=== PATIENT | female | born 1940 | race Caucasian/White ===

== ENCOUNTER 2021-10-01 17:31 | Emergency (ER) | payer OTHER ==
[~2021-10-01] VITALS: Ht 180.3 cm; Wt 81.7 kg
[2021-10-01] MEDS ORDERED: WARF1 (19:59)
[2021-10-01 20:00] LABS: BASOPHILS ABSOLUTE AUTO 0.04 K/mm3 (0.00-0.23); BASOPHILS PERCENT AUTO 0 % (0-2); EOSINOPHILS ABSOLUTE AUTO 0.06 K/mm3 (0.00-0.68); EOSINOPHILS PERCENT AUTO 1 % (0-6); Hematocrit 22.8 % (33.0-51.0); Hemoglobin 6.1 g/dL (11.5-16.0); IMMATURE GRAN ABSOLUTE AUTO 0.05 K/mm3 (0.00-0.10); IMMATURE GRAN PERCENT AUTO 0 % (0-1); LYMPHOCYTES ABSOLUTE AUTO 2.22 K/mm3 (0.84-5.20); LYMPHOCYTES PERCENT AUTO 20 % (21-46); MONOCYTES ABSOLUTE AUTO 1.03 K/mm3 (0.16-1.47); MONOCYTES PERCENT AUTO 9 % (4-13); Mean Corpuscular HGB 17.5 pg (26.0-34.0); Mean Corpuscular HGB Conc 26.8 g/dL (31.5-36.5); Mean Corpuscular Volume 65 fL (80-100); Mean Platelet Volume 9.8 fL (9.1-12.4); NEUTROPHILS ABSOLUTE AUTO 7.84 K/mm3 (1.96-9.15); NEUTROPHILS PERCENT AUTO 70 % (41-73); Platelet Count 494 K/mm3 (150-400); RDW Coefficient Variation 21.5 % (11.7-14.2); RDW Standard Deviation 48.1 fL (35.1-46.3); Red Blood Cell Count 3.49 M/mm3 (3.80-5.20); White Blood Cell Count 11.24 K/mm3 (4.00-11.30)
[2021-10-01] MEDS ORDERED: DILT30 (20:00)
[2021-10-01] MEDS ORDERED: ATOR10 (20:00)
[2021-10-01] MEDS ORDERED: EUTHYROX50 MCG (20:00)
[2021-10-01] MEDS ORDERED: METO25ER (20:00)
[2021-10-01] MEDS ORDERED: FURO80 (20:00)
[2021-10-01] MEDS ORDERED: POTA10T (20:00)
[2021-10-01] MEDS ORDERED: ASPI81CH (20:00)
[2021-10-01] MEDS ORDERED: FAMO20 (20:01)
[2021-10-01 20:19] LABS: Alanine Aminotransfer (ALT/SGP 11 U/L (12-78); Albumin, Blood 2.4 g/dL (3.4-5.0); Albumin/Globulin Ratio 0.5 (0.8-1.8); Alk Phos 86 U/L (50-136); Anion Gap 7 mmol/L (6-16); Aspartate Aminotrans (AST/SGOT 27 U/L (12-37); Bilirubin, Total 0.8 mg/dL (0.1-1.0); Blood Urea Nitrogen 18 mg/dL (8-24); Bun/Creatinine Ratio 26.1 (12.0-20.0); CO2, Blood 26 mmol/L (21-32); Calcium, Blood 8.9 mg/dL (8.5-10.1); Chloride, Blood 105 mmol/L (98-108); Creatinine, Blood 0.69 mg/dL (0.40-1.00); Globulin, Blood 4.4 g/dL (2.2-4.0); Glomerular Filtration Rate >60 (60-); Glucose, Blood 84 mg/dL (70-99); Potassium, Blood 4.3 mmol/L (3.5-5.5); Sodium, Blood 138 mmol/L (136-145); Total Protein, Blood 6.8 g/dL (6.4-8.2)
[2021-10-01 21:48] LABS: Ferritin, Serum 5 ng/mL (8-252); Iron Serum 18 ug/dL (50-170); Total Iron Binding Capacity 300 ug/dL (250-450)
[2021-10-01 22:48] LABS: Prothrombin Time Results 43.9 Sec (9.7-11.5)
[2021-10-01 23:02] LABS: Influenza A, PCR NEGATIVE (NEGATIVE); Influenza B, PCR NEGATIVE (NEGATIVE); Resp Syncytial Virus, PCR NEGATIVE (NEGATIVE); SARS-Cov-2 (COVID-19) PCR, MMC NEGATIVE (NEGATIVE)
[2021-10-01 23:06] LABS: International Normalized Ratio 4.62
== END 2021-10-02 01:41 | disposition home or self-care (01) ==
LOC: ER 17:31
PROVIDERS: Student in an Organized Health Care Education/Training Program
DX: K86.89 Other specified diseases of pancreas (principal); K55.059 Acute (reversible) ischemia of intestine, part and extent unspecified; D64.9 Anemia, unspecified; Z20.822 Contact with and (suspected) exposure to COVID-19; Z79.899 Other long term (current) drug therapy
CPT/HCPCS: 0241U; 36430; 74177; 80053; 82728; 83540; 83550; 83690; 85025; 85610; 85730; 86850; 86900; 86901; 86923; 93005; 93010; 99284-25; J7030; P9016; Q9967

== ENCOUNTER → 2021-10-28 | Outpatient (CLI) | payer OTHER ==
[~2021-10-28] MED LIST: ASPI81CH; ATOR10; DILT30; EUTHYROX50 MCG; FAMO20; FURO80; METO25ER; POTA10T; WARF1
[2021-10-28 17:57] LABS: BASOPHILS ABSOLUTE AUTO 0.05 K/mm3 (0.00-0.23); BASOPHILS PERCENT AUTO 1 % (0-2); EOSINOPHILS ABSOLUTE AUTO 0.01 K/mm3 (0.00-0.68); EOSINOPHILS PERCENT AUTO 0 % (0-6); Hematocrit 32.4 % (33.0-51.0); Hemoglobin 9.2 g/dL (11.5-16.0); IMMATURE GRAN ABSOLUTE AUTO 0.08 K/mm3 (0.00-0.10); IMMATURE GRAN PERCENT AUTO 1 % (0-1); LYMPHOCYTES PERCENT AUTO 20 % (21-46); MONOCYTES ABSOLUTE AUTO 0.86 K/mm3 (0.16-1.47); MONOCYTES PERCENT AUTO 9 % (4-13); Mean Corpuscular HGB 21.6 pg (26.0-34.0); Mean Corpuscular HGB Conc 28.4 g/dL (31.5-36.5); Mean Corpuscular Volume 76 fL (80-100); Mean Platelet Volume 9.6 fL (9.1-12.4); NEUTROPHILS ABSOLUTE AUTO 6.72 K/mm3 (1.96-9.15); NEUTROPHILS PERCENT AUTO 70 % (41-73); Platelet Count 423 K/mm3 (150-400); RDW Coefficient Variation 28.2 % (11.7-14.2); Red Blood Cell Count 4.25 M/mm3 (3.80-5.20); White Blood Cell Count 9.62 K/mm3 (4.00-11.30)
[2021-10-28 18:14] LABS: Albumin, Blood 2.7 g/dL (3.4-5.0); Albumin/Globulin Ratio 0.6 (0.8-1.8); Bilirubin, Total 0.8 mg/dL (0.1-1.0); Bun/Creatinine Ratio 21.1 (12.0-20.0); Calcium, Blood 9.4 mg/dL (8.5-10.1); Creatinine, Blood 0.9 mg/dL (0.40-1.00); Globulin, Blood 4.6 g/dL (2.2-4.0); Magnesium, Blood 1.9 mg/dL (1.6-2.4); Potassium, Blood 3.5 mmol/L (3.5-5.5); Thyroid Stimulating Hormone 11.72 uIU/mL (0.360-4.800); Total Protein, Blood 7.3 g/dL (6.4-8.2)
== END | disposition home or self-care (01) ==
LOC: LAB SHORT 17:45
PROVIDERS: Physician Assistant
DX: E03.9 Hypothyroidism, unspecified (principal)
CPT/HCPCS: 80053; 83690; 83735; 84443; 85025

== ENCOUNTER 2021-11-11 21:38 | Inpatient (IN) | payer OTHER ==
[~2021-11-11] VITALS: Ht 165.1 cm; Wt 77.2 kg
[~2021-11-11 21:38] MED LIST changes: -ASPI81CH; +ASPI81CH PO; -ATOR10; +ATOR40TA PO; +DILT120 PO; -DILT30; -EUTHYROX50 MCG; -FAMO20; +FAMO20 PO; +FURO20 PO; -FURO80; +LEVSOD150 PO; -METO25ER; +METO25ER PO; -POTA10T; +POTA10T PO; -WARF1; +WARF5 PO
[2021-11-11 22:05] LABS: BASOPHILS ABSOLUTE AUTO 0.03 K/mm3 (0.00-0.23); BASOPHILS PERCENT AUTO 0 % (0-2); EOSINOPHILS PERCENT AUTO 0 % (0-6); Hematocrit 31.6 % (33.0-51.0); Hemoglobin 9.2 g/dL (11.5-16.0); IMMATURE GRAN ABSOLUTE AUTO 0.26 K/mm3 (0.00-0.10); IMMATURE GRAN PERCENT AUTO 1 % (0-1); LYMPHOCYTES ABSOLUTE AUTO 3.34 K/mm3 (0.84-5.20); LYMPHOCYTES PERCENT AUTO 16 % (21-46); MONOCYTES ABSOLUTE AUTO 2.23 K/mm3 (0.16-1.47); MONOCYTES PERCENT AUTO 11 % (4-13); Mean Corpuscular HGB 22.4 pg (26.0-34.0); Mean Corpuscular HGB Conc 29.1 g/dL (31.5-36.5); Mean Corpuscular Volume 77 fL (80-100); Mean Platelet Volume 9.5 fL (9.1-12.4); NEUTROPHILS ABSOLUTE AUTO 14.46 K/mm3 (1.96-9.15); NEUTROPHILS PERCENT AUTO 71 % (41-73); NRBC ABSOLUTE 0.04 K/mm3 (0.00-0.02); NRBC Auto 0.2 /100 WBC (0.0-0.2); Platelet Count 267 K/mm3 (150-400); RDW Standard Deviation 69.7 fL (35.1-46.3); White Blood Cell Count 20.32 K/mm3 (4.00-11.30)
[2021-11-11 22:23] LABS: Alanine Aminotransfer (ALT/SGP 18 U/L (12-78); Albumin, Blood 2.6 g/dL (3.4-5.0); Albumin/Globulin Ratio 0.6 (0.8-1.8); Alk Phos 88 U/L (50-136); Anion Gap 10 mmol/L (6-16); Aspartate Aminotrans (AST/SGOT 61 U/L (12-37); Bilirubin, Total 1.2 mg/dL (0.1-1.0); Blood Urea Nitrogen 20 mg/dL (8-24); Bun/Creatinine Ratio 26.7 (12.0-20.0); CO2, Blood 21 mmol/L (21-32); Calcium, Blood 8.8 mg/dL (8.5-10.1); Chloride, Blood 107 mmol/L (98-108); Creatinine, Blood 0.75 mg/dL (0.40-1.00); Globulin, Blood 4.5 g/dL (2.2-4.0); Glomerular Filtration Rate >60 (60-); Glucose, Blood 131 mg/dL (70-99); Potassium, Blood 3.5 mmol/L (3.5-5.5); Sodium, Blood 138 mmol/L (136-145); Total Protein, Blood 7.1 g/dL (6.4-8.2)
[2021-11-11 23:07] LABS: International Normalized Ratio 1.66; Prothrombin Time Results 16.9 Sec (9.7-11.5)
[2021-11-12 01:18] LABS: Hematocrit 31.6 % (33.0-51.0); Hemoglobin 8.9 g/dL (11.5-16.0); Mean Corpuscular HGB 22.8 pg (26.0-34.0); Mean Corpuscular HGB Conc 28.2 g/dL (31.5-36.5); Mean Corpuscular Volume 81 fL (80-100); Mean Platelet Volume 10.3 fL (9.1-12.4); NRBC ABSOLUTE 0.03 K/mm3 (0.00-0.02); NRBC Auto 0.1 /100 WBC (0.0-0.2); Platelet Count 225 K/mm3 (150-400); RDW Coefficient Variation 27.3 % (11.7-14.2); RDW Standard Deviation 74.5 fL (35.1-46.3); White Blood Cell Count 21.34 K/mm3 (4.00-11.30)
[2021-11-12 01:36] LABS: Anion Gap 8 mmol/L (6-16); Blood Urea Nitrogen 21 mg/dL (8-24); Bun/Creatinine Ratio 27.7 (12.0-20.0); CO2, Blood 22 mmol/L (21-32); Calcium, Blood 8.6 mg/dL (8.5-10.1); Chloride, Blood 106 mmol/L (98-108); Creatinine, Blood 0.76 mg/dL (0.40-1.00); Glomerular Filtration Rate >60 (60-); Glucose, Blood 143 mg/dL (70-99); Potassium, Blood 3.9 mmol/L (3.5-5.5); Sodium, Blood 136 mmol/L (136-145)
--- NOTE | 2021-11-12 03:22 | NUR ---
ADMIT NOTE PT ARRIVED TO PCU FROM ED AT APPROX 0100. PT WAS SLID BY 4 STAFF FROM ED STRETCHER TO PCU BED. PT A&OX4. SP02>92% ON RA. TELEMETRY SHOWS AFIB, HR 70'S. BP SOFT. PT C/O OF NAUSEA. ZOFRAN GIVEN PER EMAR. FLUIDS INFUSING PER EMAR. ADMISSION COMPLETE, PT DOES NOT KNOW HOME MEDICATIONS, STATES HER WILL BRING IN LIST TOMORROW. PT ORIENTED TO ROOM, TO CALL LIGHT. CALL LIGHT IN REACH.
--- NOTE | 2021-11-12 06:42 | NUR ---
SHIFT SUMMARY NO FURTHER CHANGES FROM PREVIOUS NOTE EXCEPT PT C/O OF NAUSEA AND PAIN. TYLENOL GIVEN PER EMAR. PT PREVIOUSLY WAS GIVEN ZOFRAN AND NOT IN WINDOW. CALL PLACED TO MD FORDE. MD FORDE WITH ORDERS FOR PHENERGAN. PT'S DAUGHTER IN LAW CALLED THIS AM TO GET UPDATE. UNABLE TO UPDATE DIL, PT ONLY ADDED TO HIPPA CONTACT LIST.
--- NOTE | 2021-11-12 11:32 | NUR ---
Received referral from [facility] Joinery Factory Worker (Betty Bean) on 11/12/2021. Patient is to discharge with orders for hospice and family elected [facility]. Gathered supporting documentation for referral (face sheet, labs, imaging, progress notes, palliative care note, and H&P) and sent to [facility] bevel gear generator operator (Lukas Alejandro) for review of hospice appropriateness and ability to accept patient onto service post discharge. Will await further information from hospice bevel gear generator operator regarding the above. Kailee Pham Referral Liaison
--- NOTE | 2021-11-12 14:15 | NUR ---
Late Entry from 11/12/2021 at 1215: Received notification from [facility] assistant teacher (Lukas Alejandro) that patient is hospice appropriate and able to be accepted onto service post discharge. Will attempt to meet with patient and family today to further discuss the above. Will continue to monitor and follow for discharge. Kailee Pham Referral Liaison
--- NOTE | 2021-11-12 16:34 | NUR ---
SHIFT SUMMARY PT A&Ox3; ANXIOUS BUT COOPERATIVE WITH CARE. PT REPORTS MULTIPLE BOUTS OF NAUSEA T/O SHIFT, NO EMESIS NOTED. PT REPROTS ABD PAIN, IMPROVED WITH PHENERGAN. BP SOFT, MAP, 65, DR ESTEVES NOTIFIED, NEW ORDERS TO INCREASE NS TO 200. DR JOSHI AT BEDSIDE THIS AFTERNOON. FAMILY MEETING WITH DR ESTEVES AND GASTON BALDERAS FROM [facility]. PT TRANSITIONED TO COMFORT CARE BUT WE ARE CONTINUEING HEPARIN, FLUIDS, ANTIBIOTICS AND ANTIEMETICS. PT ON RA. DENIES DIZZINESS AND NUMB/TINGLING. NO OTHER ACUTE CHANGES NOTED. REPROT GIVEN TO RN ASSUMING CARE OF PATIENT, PT TRANSFERING TO ROOM 328. PLANS TO DISCHARGE HOME THURSDAY/THURSDAY OF THIS WEEK.
--- NOTE | 2021-11-12 16:41 | NUR ---
PLAN FOR FAMILY MEETING SCHEDULED FOR 11/13/21 AT 10:00 AM
--- NOTE | 2021-11-12 17:07 | NUR ---
Comfort care visit and Family/MD conference note: Dr, family (, son and dil) and myself met at 2pm as planned. Pt's current status and challenges discussed and options for care reviewed. Pt and family in agreement with and request comfort care and plans for d/c home with hospice after sepsis is treated, s/s assessment and management stable with trial of PO intake. Pt and family verbalize understanding that surgery for pt not recommended due to heparin tx and large abd hernia. Pt currently has a SBO thought to be from pancreatic mass, newly discovered pancreatic CA with metastatic disease. Her primary s/s are nausea and abd pain. Medications to treat s/s discussed and ordered in comfort care order set. All new orders and plans discussed with bedside RN and RASHID BAIRD after meeting. Family and pt made aware that if SBO caused n/v that could not be relieved that an NG tube to gentle intermittent suction could be employed both here and at home to decompress GI tract and prevent emesis of stomach/colon contents or aspiration of same. Pt to be started on clear liquids for trial of PO intake. Plans discussed for d/c home later this week if s/s well managed and DME/hospice in place. Family has stated preference for [facility] and RASHID BAIRD has been in contact with them for screening and meeting with family tomorrow. Later in afternoon I met son and dil in hallway and spent 20 minutes with them answering questions and listening to their concerns. They expressed great appreciation for the Dr and staff's care of patient and the plan going forward. They verbalized understanding of pt's more limited time if she is not able to tolerate any PO fluids or food. They are gathering family and support and plan to have family visitors in while pt here at hospital. Visiting policy reviewed that they are able to have four visitors per day for comfort care pt. Pt moved to Medical floor rm [id number] this afternoon and family was notified by [employer].
--- NOTE | 2021-11-12 17:20 | NUR ---
IN HOUSE TRANSFER REPORT GIVEN BY COMMUTATOR TESTER. PATIENT RECEIVED FROM PCU. PATIENT ORIENTED TO ROOM. HEPARIN DRIP VERIFIED WITH COMMUTATOR TESTER. PATIENT RESTING COMFORTABLY WITH FAMLIY AT BEDSIDE. WILL CONTINUE TO MONITOR
--- NOTE | 2021-11-12 18:16 | NUR ---
SHIFT SUMMARY PATIENT TRANFERRED FROM PCU THIS AFTERNOON. PATIENT ON MODIFIED COMFORT CARE RECEIVING FLUIDS, ANTIBIOTICS, AND HEPARIN DRIP. PATIENT NAUSEATED AND VOMITED ONCE UNDER THIS RN'S CARE. PATIENT RESTING AFTER LINEN CHANGE WITH FAMILY AT BEDSIDE. WILL CONTINUE TO MONITOR.
[2021-11-12] MEDS ORDERED: OMEP20ER PO (19:26)
[2021-11-12] MEDS ORDERED: PROM25 PO (19:27)
[2021-11-12] MEDS ORDERED: DEXA4 PO (19:27)
--- NOTE | 2021-11-12 19:50 | NUR ---
HEPARIN GTT CONT'S AT 15 UN/KG/HR (19.5 ML/HR) PER PHARMACY MANAGEMENT.
--- NOTE | 2021-11-13 00:05 | NUR ---
NOTIFIED OF PERSISTANT NAGGING NAUSEA W/EMESIS AND FREQ ATTEMPTS TO VOID W/O SUCCESS. BLADDER SCAN IS 539 MLS. NEW ORDERS RECIEVED FOR KENNY CATHETER, REGLAN 10MG IV Q6P AND ATIVAN 1-2MG IV Q2P. PLAN TO GIVE MEDS THEN INSERT CATHETER. WILL CONTINUE TO MONITOR CLOSELY AND PROVIDE COMFORT MEASURES.
--- NOTE | 2021-11-13 01:07 | NUR ---
14FR INDWELLING KENNY CATH INSERTED W/STERILE TECHNIQUE MAINTAINED AND PT CONSENT OBTAINED. CATH REQUIRED FOR COMFORT CARE AND BLADDER SCAN>539. PT ATTEMPTED TO USE BEDPAN MULTIPLE TIMES W/INABILITY TO VOID. SHE'S HAD NO INCONTINENCE DESPITE FEELING FREQ NEED TO VOID WELL. PT BECOMES NAUSEOUS WHEN REPOSITIONING AND FLAT LYING DURING BEDPAN ATTEMPTS. DARK CONCENTRATED AMOR URINE OBSERVED. UA OBTAINED AND SENT PER PROTOCOL.
[2021-11-13 01:20] LABS: Source, Urine Foley catheter
[2021-11-13 01:36] LABS: Appearance, Urine Clear (Clear); Bilirubin, Urine Neg (Neg); Blood, Urine Neg (Neg); Color, Urine Yellow (P-Yellow); Glucose Qualitative, Urine Neg (Neg); Ketones, Urine 1+ (Neg); Leukocyte Esterase, Urine 1+ (Neg); Nitrite, Urine Pos (Neg); Protein, Urine 2+ (Neg); Specific Gravity, Urine 1.015 (1.003-1.022); Urobilinogen, Urine NORM (Normal)
[2021-11-13 01:48] LABS: Red Blood Cells, Urine 0-2 /hpf (0-2)
[2021-11-13 01:49] LABS: Bacteria Many /hpf; Squamous Epithelial Cells Rare /hpf (Few)
--- NOTE | 2021-11-13 04:56 | NUR ---
PT'S DAUGHTER IN LAW (JULISSA) CALLED FOR UPDATE. THIS RN DISCUSSED KENNY INSERTION, MEDS REQUIRED AND CARE RECEIVED. NO FURTHER Q'S/CONCERNS. SHE PLANS TO BE HERE FOR 1000 MEETING TO DISCUSS HOME W/HOSPICE AND INTENDS TO HAVE FAMILY BEGINNING REMAINING AT BEDSIDE IN SHIFTS.
--- NOTE | 2021-11-13 06:06 | NUR ---
1,625 UN X1 HEPARIN BOLUS RECIEVED AND INCREASED HEPARIN GTT TO 17 UN/KG/HR (22.1 ML/HR) PER PHARMACY MANAGEMENT. VERIFIED W/2ND RN (SHIRAZ GRIER).
--- NOTE | 2021-11-13 06:47 | NUR ---
SUMMARY: PT ORIENTED TO SELF AND FAMILY BUT IS FORGETFULL AT TIMES W/REMINDERS PROVIDED PRN. COMFORT MEASURES MAINTAINED T/O NOCTE AND FREQ ANTIEMETICS MEDS RECIEVED FOR NAUSEA W/EMESIS. PHENERGAN X2, ZOFRAN X1 AND REGLAN X1 PROVIDED FOR TEMPORARY RELIEF, BILE COLORED EMESIS OBSERVED. LINEN AND GOWN CHANGED OFTEN. PT ATTEMPTED TO ALERT STAFF AND HOLD OWN EMESIS BAG WHEN NAUSEOUS BUT SHE IS INCREASINGLY WEAKER. ATIVAN 0.5MG IV PRN PROVIDED FOR PROMOTION OF SLEEP/REST AND NAGGING DISCOMFORT. SCOPALAMINE PATCH PLACED FOR REDUCTION OF ORAL SECRETIONS IN PRESENCE OF SBO. PT ATTEMPTED TO USE BEDPAN TO VOID BUT WAS UNABLE, BLADDER SCAN OF 539MLS W/KENNY RX OBTAINED AND INSERTED. HEPARIN GTT BEING MANAGED BY PHARMACY, CURRENT RATE OF 22.1 UN/KG/HR W/1,625 UN BOLUS RECIEVED THIS SHIFT. IV ABX PROVIDED PER EMAR AND NS INFUSES AT 200 ML/HR. SUPPORTIVE FAMILY INVOLVED IN CARE. NO ACUTE CHANGES. REPORT PROVIDED TO DAY RN.
--- NOTE | 2021-11-13 18:45 | NUR ---
Review of symptoms with nursing. pt restless and abdomen feels tight some attemtps at vomiting today. Brought her a blanket and neck pillow. Will reivew fluids with physician tomorrow.
--- NOTE | 2021-11-13 20:12 | NUR ---
END OF SHIFT SUMMARY: PATIENT DENIED PAIN THROUGHOUT THE SHIFT. HOWEVER, AT TIMES, PATIENT APPEARED UNCOMFORTABLE. MEDICATING FOR NAUSEA ASSISTED. PATIENT HAD AN EPISODE OF EMESIS IN THE MORNING. MEDICATED WITH PRN IV MEDICATION DUE TO LACK OF AVAILABILITY OF ODT ZOFRAN. ONCE AVAILABLE, PATIENT RESPONDED VERY WELL TO THE ODT ZOFRAN - PATIENT MORE ALERT, FACE APPEARED CALMER, AND PATIENT MORE INTERACTIVE WITH FAMILY AND STAFF. AT THE END OF THE SHIFT, PATIENT APPEARED UNCOMFORTABLE AND WAS MOANING OCCASIONALLY. MEDICATED FOR PAIN PER PRNS. SUCTION SET UP IN THE ROOM AND PATIENT MEDICATED FOR SECRETIONS. SPOKE WITH DR. ESTEVES IN THE MORNING RE: IV FLUID RATE. NEW ORDER RECEIVED AND IMPLEMENTED. FAMILY AT PATIENT'S BEDSIDE THROUGHOUT THE DAY. THEY ARE SUPPORTIVE OF THE PATIENT AND EXPRESS APPRECIATION FOR THE STAFF.
--- NOTE | 2021-11-14 06:35 | NUR ---
PT IS A/OX2-3. SHE WAS ABLE TO REPORT WHEN SHE WAS PAINFUL OR NAUSEATED. FAMILY STAYED AT BEDSIDE AND WERE A TREMENDOUS HELP. WE'LL CONTINUE TO MONITOR THE REMAINDER OF THE SHIFT.
--- NOTE | 2021-11-14 08:19 | NUR ---
Late Entry from 11/13/2021 at 100: Met with patient, patient's (Man Morales), patient's son (Man Morales Jr), patient's [id number] (Mariana Morales), and patient's granddaughter (Marta Morales) to further discuss hospice services and the election of [facility]. Patient and family are agreeable to the above. However, patient's family voices some hesitation on discharge planning as patient is still very nauseated. Patient's family would like patient's nausea to be well controlled prior to discharge. Discussed with family that this screen writer would reach out to both the bedside RN (Juana Schofield) and [employer] Gas Tender (Betty Bean) regarding the above. Discussed what hospice is (reserved for patients with a terminal diagnosis with life expectancy of 6 months or less). Discussed that some patients exceed the 6 months expectancy and stay on service and some patients stabilize and come off hospice. Patient and family verbalized understanding of the above. Discussed with patient and family that hospice service focuses on quality of life at the end of life and that rather than measuring the quantity of days, the quality of those days would be measured. Discussed with patient and family that with hospice service the goal would be to keep the patient out of the hospital and comfortable by managing symptoms at home. Patient and family verbalized understanding. Discussed the people, prescriptions, and equipment of hospice. People- discussed the team of people and their roles (RNs, chaplains, therapists, LCSWs, CNAs, and volunteers) that would be there to support not only the patient but also their family during this time. Explained to the patient and family that the team would be custom tailored to the patient and family's needs during this time. Patient and family verbalized understanding. Prescriptions- discussed that we utilize a mail order pharmacy ([facility]) to provide medications related to the hospice diagnosis and for symptom management. All other medications that patient chose to stay on would be patient's and/or patient's family's responsibility to provide and pay for. Patient and family verbalized understanding. Discussed that upon discharge patient would be given three prescriptions, one for morphine 20mg/mL #30mL (0.25mL - 1mL PO/SL Q1H PRN SOB/pain), one for lorazepam 0.5mg #20 (1 - 2 PO Q4H PRN anxiety), and one for hyoscyamine 0.125mg SL tablets #30 (1 SL Q2H PRN secretions). Explained to the patient and family that as patient would not yet be admitted to hospice service at the time of discharge those prescriptions would be patient/patient's family's responsibility to fill and pay for. Patient and family verbalized understanding. Equipment- discussed with patient and family that we contract through [employer] to provide DME such as hospital beds, commodes, etc. to patient. Discussed what DME patient would like upon discharge and made note to order DME (hospital bed, full rails, over bed table, and pump & pad) when discharge date was known. Discussed with patient and family that [employer] does not supply the sheets for the beds. Discussed that one of two options can be used- either a twin extra-long fitted sheet OR a crouch sized flat sheet wrapped around the pump & pad. Patient and family verbalized understanding. Discussed with patient and family that once patient was admitted onto hospice services the goal would be for them to contact us ([facility]) over contacting 911 or presenting back to the hospital/ED. Patient and family verbalized understanding. Discussed the tentative discharge plans for possibly Thursday- 11/15/2021 at 1030 with preferred mode of transportation- medical transport via gurney. Explained to patient and family that I would arrange transportation for patient. Patient and family verbalized understanding. Offered a chance for patient and family to ask questions regarding the above of which there were none. Will continue to monitor and follow as appropriate for discharge. Kailee Pham Referral Liaison
--- NOTE | 2021-11-14 16:55 | NUR ---
Pt does not appear to be pain, or be experiencing SOB. She is pleasant. No changes to care plan at this itm
--- NOTE | 2021-11-15 05:36 | NUR ---
SHIFT SUMMARY: THE PT IS NOW SL BETWEEN ABX. SHE HAS BEEN SOUNDING MORE WET AND CRACKLY THIS NOC SHIFT. THERE IS A SCOP PATCH BEHIND HER LEFT EAR AND SHE ALSO HAS ATROPINE DROPS IN HER ROOM IF NEEDED FOR SECRETIONS. ALSO THE PT HAS COMFORT CARE PRN MEDS IN THE EMAR. FAMILY HAS BEEN AT BEDSIDE AND CALLS APPROPRIATELY FOR ALL NEEDS. PT HAS BEEN REPOSITIONED Q2.
--- NOTE | 2021-11-15 17:12 | NUR ---
SHIFT SUMMARY PATIENT HAS BEEN RESTING MOST OF SHIFT. PATIENT OCCASIONALLY OPENS HER EYES AND WISPERS REQUESTS. PATIENT HAS BEEN REPOSTIONED Q2. PATIENT HAS BEEN MEDICATED PRN FOR SIGNS AND SYMPTOMS. PATIENT HAS BEEN MEDICATED FOR PAIN AND NAUSEA THIS SHIFT. FAMILY HAS BEEN WITH PATIENT ROTATING IN AND OUT. PATIENT WAS A TRANSFER FROM [facility]. NO ACUTE EVENTS THIS SHIFT. WILL MONITOR UNTIL SHIFT CHANGE.
--- NOTE | 2021-11-15 17:15 | NUR ---
SHIFT SUMMARY PATIENT HAS BEEN ALERT AND ORIENTED X4. PATIENT HAS BEEN PLEASENT BUT WITHDRAWN THIS SHIFT. PATIENT HAS HAD NO ACUTE EVENTS THIS SHIFT. PATIENT HAS REPORTED A HEADACHE AND LOW GRADE FEVER THIS SHIFT AND MEDICATED WITH TYLENOL TWICE THIS SHIFT. PATIENT REPORTS NO OTHER PAIN, NAUSEA OR SOB THIS SHIFT. VITAL SIGNS REVIEWED. PATIENTS HEPARIN HAS BEEN ADJUSTED ACCORDING TO PHARMACY ORDERS. BED IN LOCKED AND LOWEST POSITION. CALL LIGHT IN PLACE. WILL MONITOR UNTIL SHIFT CHANGE.
--- NOTE | 2021-11-16 00:03 | NUR ---
Patient not in any acute distress at this time. Continue with monitoring patient
--- NOTE | 2021-11-16 00:09 | NUR ---
No changes in patient status
--- NOTE | 2021-11-16 02:09 | NUR ---
No changes in patient status
--- NOTE | 2021-11-16 04:15 | NUR ---
Shift notes Patient family at bed side, report any request that patient may have. She is reposition Q2. Medicated her PRN as needed for pain. Used the atropine once per request. We will continue to monitor patient.
--- NOTE | 2021-11-16 13:34 | NUR ---
Comfort care visit after chart review and case conference with bedside RN. Three grandchildren and pt's in attendance in room. They are talking quietly and reminiscing. Pt is unresponsive to voice or touch. She has increased resp effort with a large amount of upper airway secretions heard. EOL care and s/s of impending discussed with family. They are all calm and appropriately grieving/supportive of one another. They expressed appreciation of pt's care, staff and the visit. Pt has been medicated recently for pain/discomfort and appears peaceful/comfortable outside of secretions and increased respiratory effort. Visit discussed with RN afterwards. Will cont to visit daily.
--- NOTE | 2021-11-16 17:51 | NUR ---
DAY SHIFT SUMMARY PT IS COMMFORT CARE, EXPERIENCING SECREATIONS WITH SUCTION NEEDED. MEDICATED PER EMAR FOR SECREATIONS AND PAIN. FAMILY HAS BEEN AT BED SIDE THROUGHOUT SHIFT. PT HAS BEEN REPOSITIONED Q2HR AND CARE HAS BEEN GIVEN PER ORDERS. PALLITIVE CARE NURSE VISITED WITH PT AND FAMILY TODAY.
--- NOTE | 2021-11-16 23:05 | NUR ---
Pt family called to come to the room, pt found not breathing and not responsive. 2 RN pronouncement. time of 22:30. family - daughter and son in law at bedside. notified and is on his way. no pastoral care wanted. family has picked [facility]. all belongings are with family.
--- NOTE | 2021-11-18 08:17 | NUR ---
Review of patient's records today indicates that patient yesterday- 11/17/2021. Notified [facility] Clinical Coordinator (Elise Schmitt) of the above. No further interventions required. Kailee Pham Referral Liaison
== END 2021-11-17 00:52 | DRG 871 ==
LOC: ER 21:38 → PCU 11-12 01:43 → MEDS 11-12 16:47
PROVIDERS: Emergency Medicine; ADMIT Internal Medicine
DX: A41.9 Sepsis, unspecified organism (principal); I81 Portal vein thrombosis; K55.059 Acute (reversible) ischemia of intestine, part and extent unspecified; I82.890 Acute embolism and thrombosis of other specified veins; C18.9 Malignant neoplasm of colon, unspecified; E87.2 Acidosis; C25.9 Malignant neoplasm of pancreas, unspecified; C79.9 Secondary malignant neoplasm of unspecified site; R65.20 Severe sepsis without septic shock; D64.9 Anemia, unspecified; I10 Essential (primary) hypertension; Z95.2 Presence of prosthetic heart valve; Z79.01 Long term (current) use of anticoagulants; Z79.899 Other long term (current) drug therapy; Z79.82 Long term (current) use of aspirin; Z66 Do not resuscitate; Z98.890 Other specified postprocedural states; Z53.29 Procedure and treatment not carried out because of patient's decision for other reasons; Z51.5 Encounter for palliative care
CPT/HCPCS: 36415; 74177; 80048; 80053; 81001; 83605; 83690; 85025; 85027; 85610; 85730; 87040; 87077; 87086; 87186; 96374-59; 96375; 99285-25; A9270; C1751; J1644; J1940; J2060; J2270; J2405; J2543; J2550; J2765; J3010; J7030; Q9967